=== PATIENT | female | born 1990 | race Asian ===

== ENCOUNTER 2018-08-29 20:32 | Emergency (ER) | payer SELFPAY ==
[~2018-08-29] VITALS: Ht 165.1 cm; Wt 48.1 kg
--- NOTE | 2018-08-29 20:50 | NUR ---
Dr. Moore assessing pt in triage room.
--- NOTE | 2018-08-29 21:19 | NUR ---
Pt to lab in stable condition.
[2018-08-29 21:27] VITALS: BP_SYST 120
--- NOTE | 2018-08-29 21:27 | NUR ---
Pt states that she took Ibuprofen 200 mg x 8 pills about 1.5 hours [employer] in attempt to hurt her self. Pt states then she realized what she had done and induced vomiting, but couldn't vomit. [facility]ie called [facility] and was instructed to come to ER. Pt currently denies SI/HI, denies A/V hallucinations. Pt denies previous SI attempts. Pt AAOx4, calm and cooperative demeanor, VSS. Denies N/V/D, denies abdominal pain or GI symptoms or any other c/o discomfort at this time.
[2018-08-29 21:56] LABS: CREATININE 0.64 mg/dL (0.55-1.30); POTASSIUM 3.4 mmol/L (3.5-5.1)
[2018-08-29 22:01] LABS: TOTAL BILIRUBIN 0.3 mg/dL (0.0-1.0)
[2018-08-29 22:14] LABS: WHITE BLOOD COUNT (AUTO) 7.8 K/uL (4.8-10.8)
[2018-08-29 22:16] LABS: HEMOGLOBIN 10.1 g/dL (12.0-16.0); MEAN CORPUSCULAR HEMOGLOBIN 24 pg (27-31); MEAN CORPUSCULAR VOLUME 75 fL (79.0-98.0); RED BLOOD CELL COUNT(AUTO) 4.25 MIL/uL (4.2-6.2)
[2018-08-29 22:17] LABS: MEAN CORPUSCULAR HGB CONC 32 % (32-36); PLATELET COUNT (AUTO) 363 K/uL (130-430)
[2018-08-29 22:25] LABS: BASOPHILS % (AUTO) 0.6 % (0.0-2.0); EOSINOPHILS % (AUTO) 0.5 % (0.0-4.0); LYMPHOCYTES # (AUTO) 2.8 K/uL (1.0-5.5); LYMPHOCYTES % (AUTO) 33.3 % (20.5-51.5); MONOCYTES # (AUTO) 0.7 K/uL (0.0-1.0); MONOCYTES % (AUTO) 8.7 % (1.7-9.3); NEUTROPHILS # (AUTO) 4.4 K/uL (1.8-7.7); NEUTROPHILS % (AUTO) 56.9 % (40.0-70.0)
[2018-08-29 22:35] VITALS: BP_SYST 122
--- NOTE | 2018-08-29 22:35 | NUR ---
Pt discharged by Dr. Moore. Patient given written and verbal discharge instructions and verbalizes understanding. ER MD discussed with patient the results and treatment provided. Patient in stable condition. ID arm band removed. No Rx given. Patient educated on pain management and to follow up with PMD. Pain Scale 0/10. Opportunity for questions provided and answered. Medication side effect fact sheet provided. Addendum: 08/29/18 at 2242 by [email or web address] Pt denies SI/HI, no A/V hallucinations.
== END 2018-08-29 22:35 | disposition home or self-care (01) ==
LOC: SED 20:32
DX: T39.311A Poisoning by propionic acid derivatives, accidental (unintentional), initial encounter (principal); Y92.89 Other specified places as the place of occurrence of the external cause
CPT/HCPCS: 36415; 80053; 85025; 99283